=== PATIENT | female | born 1985 | race African-American/Black ===

== ENCOUNTER 2017-03-19 00:22 | Emergency (ER) | payer OTHER ==
[~2017-03-19] VITALS: Ht 165.1 cm; Wt 129.3 kg
[~2017-03-19 00:22] MED LIST: AMOXICILLIN 50500 MG PO; IBUPROFEN 600600 M1 PO; IBUPROFEN 800800 MG PO; NOHOMEMEDICATIONS; PHENERGAN 25 MG25 M1 PO; PHENERGAN50 MG RC; TESSALON PERLE100 MG PO; ZOFRAN ODT4 MG PO
[2017-03-19 01:39] VITALS: BP 128/76
== END 2017-03-19 01:51 | disposition home or self-care (01) ==
LOC: ER 00:22
DX: S60.222A Contusion of left hand, initial encounter (principal); W22.03XA Walked into furniture, initial encounter; Y93.89 Activity, other specified; Y92.89 Other specified places as the place of occurrence of the external cause; Y99.8 Other external cause status

== ENCOUNTER 2018-07-01 08:26 | Emergency (ER) | payer OTHER ==
[~2018-07-01] VITALS: Ht 165.1 cm; Wt 122.0 kg
[2018-07-01 08:31] VITALS: BP 158/98
[2018-07-01] MEDS ORDERED: NORCO 5-325 TA1 EACH PO (09:32)
== END 2018-07-01 11:15 | disposition home or self-care (01) ==
LOC: ER 08:26
DX: S93.402A Sprain of unspecified ligament of left ankle, initial encounter (principal); W19.XXXA Unspecified fall, initial encounter; Y93.89 Activity, other specified; Y92.89 Other specified places as the place of occurrence of the external cause; Y99.8 Other external cause status